=== PATIENT | male | born 1980 | race African-American/Black ===

== ENCOUNTER 2017-11-26 01:34 | Emergency (ER) | payer SELFPAY ==
[2017-11-26] MEDS ORDERED: LIDOCAINE 1% PF 30 ML VIAL. (02:10)
[2017-11-26] MEDS ORDERED: LIDOCAINE 1% Multi-Dose 20 ML VIAL. INJ (02:15)
[2017-11-26] MEDS ORDERED: CLINDAMYCIN HCL 150 MG CAPSULE. PO (02:15)
[2017-11-26] MEDS ORDERED: CLINDAMYCIN HCL 150 MG CAPSULE. (02:40)
== END 2017-11-26 02:48 | disposition home or self-care (01) ==
LOC: ER 01:34
DX: L02.01 Cutaneous abscess of face (principal)
CPT/HCPCS: 10060; 99283